=== PATIENT | female | born 1990 | race Caucasian/White ===

== ENCOUNTER 2018-08-25 05:08 | Day surgery (SDC) | payer OTHER ==
[2018-08-24 08:56] VITALS: BMI 25.2
[2018-08-25] MEDS ORDERED: KETOROLAC TROMETHAMINE 30 MG/1 ML VIAL ONE (09:45)
[2018-08-25] MEDS ORDERED: PROPOFOL 20 ML ONE (09:45)
[2018-08-25] MEDS ORDERED: DEXAMETHASONE SOD PHOSPHATE 4 MG/1 ML VIAL ONE ×2 (09:45→09:53)
[2018-08-25] MEDS ORDERED: LIDOCAINE HCL/PF 2% SDV 5ML VIAL ONE (09:45)
[2018-08-25] MEDS ORDERED: MIDAZOLAM HCL 2 MG/2 ML SINGLE DOSE VIAL ONE ×2 (09:45→12:03)
--- NOTE | 2018-08-25 10:13 | HP ---
History & Physical Update - History History: No Change - Physical Physical: No Change - Assessment Assessment: No Change - Plan Plan: No Change (Agree with H&P from 08/23/18, dermoid cyst, for laparoscopic ovarian cystectomy)
[2018-08-25] MEDS ORDERED: ACETAMINOPHEN 325 MG TABLET (FP) PO PRN (10:17)
[2018-08-25] MEDS ORDERED: IBUPROFEN 800 MG/8 ML IJ IVPB PRN (10:17)
[2018-08-25] MEDS ORDERED: LACTATED RINGERS SOLUTION 1,000 ML IV SCH ×2 (10:30→10:45)
[2018-08-25] MEDS ORDERED: ONDANSETRON 4 MG/2 ML VIAL IVPUSH PRN (10:38)
[2018-08-25] MEDS ORDERED: oxyCODONE HCL 5 MG TABLET PO PRN ×2 (10:38)
[2018-08-25] MEDS ORDERED: BUPIVACAINE HCL/PF 0.5% (5MG/ML) 10 ML VIAL ONE (10:47)
[2018-08-25] MEDS ORDERED: BUPIVACAINE HCL/PF 0.5% (5MG/ML) 10 ML VIAL IJ ONE ×2 (11:42)
--- NOTE | 2018-08-25 12:13 | OP ---
Operative Note - Note: Operative Date: 08/25/18 Pre-Operative Diagnosis: right dermoid ovarian cyst Operation: right ovarian cystectomy Findings: right dermoid cyst, normal left ovary, normal uterus and b/l fallopian tubes Surgeon: Ca Raines Senior Java Engineer: Belinda Mayo Anesthesiologist/FIXED INCOME ANALYST: Kashif Woodard Anesthesia: General Specimens Removed: right dermoid ovarian cyst Estimated Blood Loss (mls): 5 Operative Report Dictated: Yes
[2018-08-25] MEDS ORDERED: ACETAMINOPHEN 1000 MG/100 ML VIAL (NON FORMULARY) IVPB ONE (12:20)
--- NOTE | 2018-08-25 12:47 | SURG ---
Surgery Cup Setter Lockstitch Note Cup Setter Lockstitch: Belinda Mayo PA-C Date of Service: 08/25/18 Diagnosis: right dermoid ovarian cyst Procedure: right ovarian cystectomy I was present for the entirety of the operative procedure. For further detail, please refer to operative report.
--- NOTE | 2018-08-25 13:30 | OP ---
DATE OF OPERATION: 08/25/2018 PREOPERATIVE DIAGNOSIS: Right ovarian dermoid cyst. POSTOPERATIVE DIAGNOSIS: Right ovarian dermoid cyst. PROCEDURE: Laparoscopic right ovarian cystectomy. SURGEON: Ca Raines DO IN HOME SALES REPRESENTATIVE: LIUDMILA Dunn ANESTHESIOLOGIST: CORI Rolle ANESTHESIA: General anesthesia. SPECIMENS REMOVED: Right dermoid ovarian cyst. COMPLICATIONS: None. ESTIMATED BLOOD LOSS: 5 mL DISPOSITION: Stable to PACU. SPONGE, NEEEDLE AND INSTRUMENT COUNT: Reported to be correct. BRIEF HISTORY: Patient is a 28-year-old female who had been seen in the office and on ultrasound examination was found to have a right ovarian dermoid cyst. The patient was counseled on her options. She elected to undergo laparoscopic resection. Consents for the procedure were signed in the office. PROCEDURE: She was then taken to [facility] on August 25, 2018, where consents were reconfirmed. She was then taken back to the operating room and given general anesthesia and placed in the dorsal lithotomy position. She was prepped and draped in the usual sterile fashion. A hard timeout was performed. A Martins catheter was placed under sterile conditions. A 5 mm skin incision was created in the umbilicus and a Veress needle was placed intra-abdominally. This was insufflated with CO2 gas. A 5-mm trocar was inserted and a camera was placed inside the abdomen. After confirmation of intraperitoneal placement, a 5-mm left lower quadrant trocar and a 10-mm right lower quadrant trocar were placed under direct visualization. The right ovarian dermoid cyst was identified. The ovary was elevated. An incision was made on the ovarian stroma. The ovarian cyst was grasped and dissected bluntly from its attachment to the ovarian stroma in its entirety. The dermoid cyst was placed in an Endo Catch bag and removed from the abdominal cavity and sent to Pathology for permanent evaluation. The abdomen and pelvis was copiously irrigated and suctioned to remove all cyst fluid and portions of cyst. The ovary was noted to be fairly hemostatic and a small piece of Surgicel was placed in the surgical site to achieve excellent hemostasis. The left-sided ovary was noted to be normal. Bilateral tubes were noted to be normal and the uterus was noted to be normal except for some adhesions to the anterior abdominal wall from prior . No other intraabdominal pathology was appreciated. The right lower quadrant 10-mm port was closed with a Angel-Reema device using a single interrupted 0 Vicryl suture. The remaining trocars were removed under direct visualization, abdomen desufflated and the skin was reapproximated with 4-0 Biosyn and skin glue. The Martins catheter was removed. The patient was awoken in stable condition in the PACU after the procedure. CA RAINES DO /[id number]
[2018-08-25] MEDS ORDERED: ONDANSETRON 4 MG/2 ML VIAL ONE (14:24)
[2018-08-25] MEDS ORDERED: ONDANSETRON 4 MG/2 ML VIAL IVPB ONE (14:30)
[2018-08-25 17:09] VITALS: BP 112/62; PULSE 68; TEMP 98.2
--- NOTE | 2018-08-26 18:36 | PATH ---
Surgical Pathology Report Patient Name: ALESSANDRO STEWART [facility]. Rec. #: [id number] /Age/Gender: 1990 (Age: 28) / F Account: [id number] Location: [facility] Taken: 08/25/2018 Received: 08/25/2018 Reported: 08/26/2018 Physicians: Ca Raines M.D. 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 Electronically Signed Linda Dudley M.D. Gross Description Received in formalin labeled "right ovarian cyst," is a 3.7 x 2.5 x 2.4 cm focally disrupted cyst. The outer surface is peterson and smooth with focal defects. Sectioning reveals sebaceous material and hair within the lumen. The cyst wall displays attached adipose tissue as well as a focal calcified structure. Onshore Diver sections are submitted in 5 cassettes with cassette #5 following decalcification. /08/25/2018 [facility]/08/25/2018
== END 2018-08-25 16:45 | disposition home or self-care (01) ==
LOC: JASU-SURG 05:08
PROVIDERS: ATTEND Obstetrics & Gynecology
PROC: 0UB04ZZ Excision of Right Ovary, Percutaneous Endoscopic Approach (ICD-10-PCS; principal; 2018-08-25 11:00)
DX: D27.0 Benign neoplasm of right ovary (principal)
CPT/HCPCS: 84703; 88307-TC; 94760; J0131